=== PATIENT | male | born 1980 | race Two or more races ===

== ENCOUNTER 2020-09-24 14:49 | Emergency (ER) | payer MEDICAID, OTHER ==
[~2020-09-24] VITALS: Ht 170.2 cm; Wt 86.2 kg
[2020-09-24 15:34] VITALS: BP 137/93
[2020-09-24] MEDS ORDERED: TETANUS-DIPTH-ACEL PERTUSSIS 0.5ML SYR Tdap IM ONE (17:45)
== END 2020-09-24 17:39 | disposition home or self-care (01) ==
LOC: ER 14:49
DX: S61.230A Puncture wound without foreign body of right index finger without damage to nail, initial encounter (principal); E11.9 Type 2 diabetes mellitus without complications; W26.8XXA Contact with other sharp object(s), not elsewhere classified, initial encounter; Y93.89 Activity, other specified; Y92.89 Other specified places as the place of occurrence of the external cause; Y99.8 Other external cause status
CPT/HCPCS: 73140; 90471; 90715